=== PATIENT | male | born 1975 | race American Indian/Alaskan Native ===

== ENCOUNTER 2020-03-17 16:46 | Emergency (ER) | payer OTHER ==
[2020-03-17] MEDS ORDERED: HYDROcodone/ACETAMINOPHEN 5-325 MG TAB PO STA (17:21)
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
--- NOTE | 2020-03-17 18:24 | XRay Report ---
Right hand 3 view series INDICATION: Right hand pain. IMPRESSION: No fracture or subluxation of the right hand identified. Signer Name: Felipe May MD Signed: 03/17/2020 6:20 PM Workstation Name: [id number]
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
[2020-03-17 19:40] VITALS: BP 140/85
== END 2020-03-17 19:13 | disposition home or self-care (01) ==
LOC: ED 16:46
DX: S16.1XXA Strain of muscle, fascia and tendon at neck level, initial encounter (principal); S56.311A Strain of extensor or abductor muscles, fascia and tendons of right thumb at forearm level, initial encounter; Z79.899 Other long term (current) drug therapy; V49.49XA Driver injured in collision with other motor vehicles in traffic accident, initial encounter; Y93.89 Activity, other specified; Y92.488 Other paved roadways as the place of occurrence of the external cause; Y99.8 Other external cause status
CPT/HCPCS: 72040; 72100; 99283